=== PATIENT | male | born 1975 | race Caucasian/White ===

== ENCOUNTER 2019-07-13 22:21 | Emergency (ER) | payer BC ==
[2019-07-13 22:28] VITALS: BP 156/96; PULSE 85; TEMP 98.7; BMI 33.7
--- NOTE | 2019-07-13 22:30 | PDOC ---
History of Present Illness - General Chief Complaint: Chest Pain Stated Complaint: CHEST PAIN Time Seen by Provider: 07/13/19 22:29 - History of Present Illness Initial Comments: This 44-year-old man, otherwise healthy presents with 1 hour history of right- sided chest pain. Patient states that he was sitting at his desk at work this evening when he had onset of steady pressure type pain located on the right side of the chest, not worse with deep breathing or movement. Patient felt somewhat lightheaded and mildly short of breath after onset of the pain. Denies diaphoresis/nausea. Pain is not worsened with exertion. No previous episode of this type of pain. He has not had any recent febrile illness/cough. He denies indigestion/eructation. He last ate at approximately 2 hours prior to onset of pain; states that he did not eat anything unusual in the meal. Risk factors: NO HTN/DM/HLD; no history of early cardiac disease in the family; no smoking No independent risk factors for pulmonary embolus: The patient states that he was away on business in [place] last week, arriving home 4 days ago after a 5- hour flight. No recent surgery; no malignancy. No family history of thromboembolic disease. No significant lower extremity edema or pain On no daily medications No allergies Non-smoker; no daily alcohol or other recreational drug use Past History - Past Medical History Allergies/Adverse Reactions: Allergies Allergy/AdvReac Type Severity Reaction Status Date / Time No Known Allergies Allergy Verified 07/13/19 22:22 Home Medications: Ambulatory Orders NK [No Known Home Medication] 07/13/19 COPD: No Other medical history: DENIES - Psycho Social/Smoking Cessation Hx Smoking History: Never smoked Have you smoked in the past 12 months: No Information on smoking cessation initiated: No Hx Alcohol Use: No Drug/Substance Use Hx: No Review of Systems - Review of Systems Able to Perform ROS?: Yes Comments:: 12 point review of systems is negative except for what is noted in the history of present illness *Physical Exam - Vital Signs Last Vital Signs Temp Pulse Resp BP Pulse Ox 98.7 F 85 18 156/96 100 07/13/19 22:24 07/13/19 22:24 07/13/19 22:24 07/13/19 22:24 07/13/19 22:24 - Physical Exam GENERAL: Adult male, mildly anxious but in no acute distress Heart rate 85/min BP 156/96 pulse oximetry 100% on room air HEAD: Normal with no signs of trauma. EYES: PERRLA, EOMI, sclera anicteric, conjunctiva clear. ENT: Ears normal, nares patent, oropharynx clear without exudates. Dry mucous membranes. NECK: Normal range of motion, supple without lymphadenopathy, JVD, or masses. LUNGS: Breath sounds equal, clear to auscultation bilaterally. No wheezes, and no crackles. HEART:Regular rate and rhythm, normal S1 and S2 without murmur, rub or gallop. ABDOMEN:.normal bowel sounds No guarding,tenderness or rebound.No masses No distention. EXTREMITIES: Normal range of motion, no edema. No clubbing or cyanosis. No erythema, or tenderness. NEUROLOGICAL: Cranial nerves II through XII grossly intact. Normal speech. No focal neurological deficits. MUSCULOSKELETAL: Back non-tender to palpation, no CVA tenderness SKIN: Warm, Dry, normal turgor, no rashes or lesions noted. Twelve-lead electrocardiograms performed; preliminary interpretation by me normal sinus rhythm at 89/min; axis, intervals and waveforms are all normal. No evidence of acute ST or T wave abnormalities. No evidence of acute cardiac arrhythmia Heart Score/ECG Review - History History: Slightly suspicious - Electrocardiogram EKG: Normal - Age Age: </= 45 - Risk Factors Based on the list above the patient has:: No risk factors known - Troponin Troponin: </= normal limit - Score Heart Score - Total: 0 ED Treatment Course - LABORATORY CBC & Chemistry Diagram: 07/13/19 22:40 07/13/19 22:40 - ADDITIONAL ORDERS Additional order review: Laboratory Results 07/13/19 07/13/19 22:40 22:40 Sodium 140 Potassium 3.7 Chloride 104 Carbon Dioxide 27 Anion Gap 9 BUN 14.0 Creatinine 0.9 Est GFR (CKD-EPI)AfAm 120.81 Est GFR (CKD-EPI)NonAf 104.24 Random Glucose 106 Calcium 8.8 Total Bilirubin 0.7 AST 26 ALT 42 Alkaline Phosphatase 46 Creatine Kinase 78 Troponin I < 0.03 Total Protein 6.7 Albumin 4.0 07/13/19 22:40 RBC 4.54 MCV 89.7 MCHC 34.0 RDW 12.0 MPV 8.6 Neutrophils % 49.1 Lymphocytes % 40.2 H Monocytes % 9.2 Eosinophils % 1.1 Basophils % 0.4 - RADIOLOGY Radiology Studies Ordered: Category Date Time Status CHEST PA & LAT [RAD] Stat Radiology 07/13/19 23:21 Taken Medical Decision Making - Medical Decision Making As noted above, this 44-year-old man, otherwise healthy and no known risk factors for coronary artery disease or pulmonary embolus presents with few hour history of right-sided chest pain associated with mild lightheadedness. Exam as noted, is normal Twelve-lead electrocardiogram shows no evidence of acute ischemic changes Chest x-ray PA and lateral performed: Preliminary interpretation by isis evidence of acute disease seen Laboratory evaluation is completely normal with nonelevated troponin and no evidence of other abnormalities. Results discussed with the patient. Since patient has a heart score of 0 and pulmonary embolus can be ruled out on clinical basis (pulse ox of 100% on room air, no tachycardia, no evidence of lower extremity DVT), it is very unlikely that this pain is due to cardiac ischemia or pulmonary embolus. He will be discharged with advice to return to the emergency room immediately if he has more severe pain, develops persistent shortness of breath, nausea or diaphoresis. 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 Discharge - Discharge Information Problems reviewed: Yes Clinical Impression/Diagnosis: Atypical chest pain Condition: Stable Disposition: HOME - Follow up/Referral - Patient Discharge Instructions Patient Printed Discharge Instructions: DI for Atypical Chest Pain Additional Instructions: Rest; avoid strenuous activity for the next few days Light diet; drink plenty of water Follow-up with your [facility] doctor within the next 48 hours Return to ER if you have persistent chest pain or develop shortness of breath/ palpitations - Post Discharge Activity
[2019-07-13 22:50] LABS: BASO % 0.4 % (0-2.0); EOS % 1.1 % (0-4.5); HEMATOCRIT 40.8 % (35.4-49); HEMOGLOBIN 13.9 GM/dl (11.7-16.9); LYMPH % 40.2 % (8-40); MCH 30.5 pg (25.7-33.7); MEAN CELL VOLUME 89.7 fl (80-96); MEAN PLT VOLUME 8.6 fl (7.5-11.1); MONO % 9.2 % (3.8-10.2); NEUT % 49.1 % (42.8-82.8); PLATELET COUNT 305 K/MM3 (134-434); RBC 4.54 M/mm3 (4.00-5.60); WHITE BLOOD COUNT 10.8 K/mm3 (4.0-10.8)
[2019-07-13 22:59] LABS: BILIRUBIN,TOTAL 0.7 mg/dl (0.2-1); CALCIUM 8.8 mg/dl (8.5-10); CREATININE 0.9 mg/dl (0.55-1.3); POTASSIUM 3.7 mmol/L (3.5-5.1); TOT PROT 6.7 g/dl (6.4-8.2)
--- NOTE | 2019-07-14 09:07 | EKG ---
Test Reason : Blood Pressure : / mmHG Vent. Rate : 089 BPM Atrial Rate : 089 BPM P-R Int : 140 ms QRS Dur : 086 ms QT Int : 368 ms P-R-T Axes : 032 030 036 degrees QTc Int : 447 ms NORMAL SINUS RHYTHM NORMAL ECG NO PREVIOUS ECGS AVAILABLE Confirmed by Jos Lira MD ([id number]) on 07/14/2019 9:07:27 AM Referred By: Confirmed By:Jos Lira MD
== END 2019-07-13 23:58 | disposition home or self-care (01) ==
LOC: FER 22:21
DX: R07.89 Other chest pain (principal)
CPT/HCPCS: 36415; 71046-TC-FY; 80053; 82550; 84484; 85025; 93005; 99282-25